=== PATIENT | male | born 1980 | race Caucasian/White ===

== ENCOUNTER 2024-12-04 15:03 | Emergency (ER) | payer OTHER, BC, SELFPAY ==
[2024-12-04 15:13] VITALS: BP 146/79; PULSE 86; RESP 16; TEMP 36.4; O2SAT 96; BMI 38.7
--- NOTE | 2024-12-04 15:37 | ED_ITS ---
HPI - General Adult General Chief complaint: Ear/Nose/Throat Problem Stated complaint: darlene hammer to the nose Time Seen by Provider: 12/04/24 15:37 History of Present Illness HPI narrative: Patient here after the piston inside a darlene hammer hit him in the nose and then flew about 25 feet. This happened around 7:30 am this morning and hasn't stopped oozing. He did see stars but did not lose consciousness. 44-year-old man presenting to the emergency department after the is 10 inside Darlene hammer struck him in the nose. Has continued to ooze blood. There was no loss of consciousness but ?saw stars?. This occurred approximately 8 hours ago in the morning. No neck or back pain. Has had a sensation of something moving at the base of his nose inside and is worried there might be more substantial injury. Apparently consulted with medical provider who noted that since he was able to clench his teeth without more pain was unlikely to be a fracture. Has continued to have some headache. Related Data Home Medications ?Medication ?Instructions ?Recorded ?Confirmed Unobtainable 12/04/24 12/04/24 Allergies Allergy/AdvReac Type Severity Reaction Status Date / Time No Known Drug Allergies Allergy Verified 12/04/24 15:09 Review of Systems Status of ROS: Reports: 6 or more systems reviewed and unremarkable except as noted in History and below Exam Narrative: Exam Narrative: Pleasant. Heavily bearded. In work attire. NAD. Cranial nerves 2-12 intact. Pupils are equal and briskly reactive. 3 mm. Nose appears perhaps slightly swollen. There are 2 darkened lines at the distal nostrils bilaterally and symmetrical consistent in placement with the diameter of the jackhammer piston. Apparently struck him straight in the nose. Dentition intact. No increased pain to palpation over the maxilla. There is a small less than half a cm I think laceration or cut of some sort puncture? just below the left nostril that I think has been leaking blood. Nasal exam does not show septal hematoma or unusual asymmetry. Is breathing easily. No pain to palpation over the maxillary sinuses. There is pain to manipulation of the bridge of the nose though it appears solid. Neck is supple nontender. Const: Vital Signs, click to edit/add: Vital Signs - 24 hr 12/04/24 15:13 Temperature 97.5 F L Pulse Rate [Pulse Oximeter] 86 Respiratory Rate 16 Blood Pressure [Ri ght Upper Arm] 146/79 H Pulse Oximetry 96 Oxygen Delivery Me thod Room Air Documenting provider has reviewed patient's vital signs: yes Course Vital Signs Vital signs: Initial Vital Signs Temperature 97.5 F L 12/04/24 15:13 Temperature Source Temporal Artery Scan 12/04/24 15:13 Pulse Rate 86 12/04/24 15:13 Respiratory Rate 16 12/04/24 15:13 Blood Pressure 146/79 H 12/04/24 15:13 Blood Pressure Mean 101 12/04/24 15:13 Blood Pressure Position Sitting 12/04/24 15:13 Pulse Oximetry 96 12/04/24 15:13 Oxygen Delivery Method Room Air 12/04/24 15:13 Vital Signs Temperature 97.5 F L 12/04/24 15:13 Pulse Rate 86 12/04/24 15:13 Respiratory Rate 16 12/04/24 15:13 Blood Pressure 146/79 H 12/04/24 15:13 Pulse Oximetry 96 12/04/24 15:13 Oxygen Delivery Method Room Air 12/04/24 15:13 Temperature 97.5 F L 12/04/24 15:13 Pulse Rate 86 12/04/24 15:13 Respiratory Rate 16 12/04/24 15:13 Blood Pressure 146/79 H 12/04/24 15:13 Pulse Oximetry 96 12/04/24 15:13 Oxygen Delivery Method Room Air 12/04/24 15:13 Medical Decision Making MDM Narrative Medical decision making narrative: This is a potentially serious mechanism of injury. Physical exam overall was reassuring. I would though CT facial bones to confirm no other injury. Does not appear to have a septal hematoma. CT scan independently reviewed by me does not appear to have any fracture. Wonder if maybe there was some cartilaginous separation not visualized on CT that is contributing to sensation. I did clean the oozing laceration under the right nostril. Does not appear to be in need of repair. There was concern of possible foreign body here. Reviewing again CT images I do not appreciate evidence of metallic foreign body here at least. Nor is that evident on cleaning. Radiology over-read below INDICATION: DARLENE HAMMER TO FACE TECHNIQUE: CT of the face and paranasal sinuses was performed without IV contrast. COMPARISON: None. FINDINGS: Bones: Normal. Orbits: Normal. Paranasal sinuses: Mild mucosal thickening of the left maxillary sinus. Mastoid air cells: Clear. Soft tissues: Normal. Visualized brain: Normal. Additional comments: None. IMPRESSION: No acute displaced facial fractures are seen. Please note that all CT scans at this facility use dose modulation, iterative reconstruction, and/or weight-based dosing when appropriate to reduce radiation dose to as low as reasonably achievable. Dictated by Jos Dyer MD @ 12/04/2024 4:17:23 PM Has not required any interventions in the emergency department. See patient discharge plan for further discussion Clean up as usual. As far as headache goes, hydrate. Can take some ibuprofen or acetaminophen. Return for sudden severe headache, unusual somnolence, discoordination, repeated vomiting. I would ice the sore areas a few times daily over the next few days. Discharge Plan Discharge Clinical Impression: Facial trauma, Laceration Patient Disposition: Home w/ Parent or Adult Condition: Stable Additional Instructions: Clean up as usual. As far as headache goes, hydrate. Can take some ibuprofen or acetaminophen. Return for sudden severe headache, unusual somnolence, discoordination, repeated vomiting. I would ice the sore areas a few times daily over the next few days. Prescriptions: No Action Unobtainable Follow Up/Referrals: Provider,Not a Local [Primary Care Provider, Family Practice] Stand Alone Forms: [employer] Info Instructions
--- NOTE | 2024-12-04 15:46 | CRLHL7_ITS ---
For Patients: As a result of the Century Cures Act, medical imaging exams and procedure reports are released immediately into your electronic medical record. You may view this report before your referring provider. If you have questions, please contact your health care provider. INDICATION: DARLENE MCLEOD TO FACE TECHNIQUE: CT of the face and paranasal sinuses was performed without IV contrast. COMPARISON: None. FINDINGS: Bones: Normal. Orbits: Normal. Paranasal sinuses: Mild mucosal thickening of the left maxillary sinus. Mastoid air cells: Clear. Soft tissues: Normal. Visualized brain: Normal. Additional comments: None. IMPRESSION: No acute displaced facial fractures are seen. Please note that all CT scans at this facility use dose modulation, iterative reconstruction, and/or weight-based dosing when appropriate to reduce radiation dose to as low as reasonably achievable. Dictated by Jos Dyer MD @ 12/04/2024 4:17:23 PM (Electronically Signed)
--- OUTSIDE RECORDS SUMMARY | 2024-12-04 16:16 | XMS_ITS | Clinical Summary ---
Author Organization [facility] er Address [address] [place] [address] Care Team Providers Care Wastewater Project Manager Name Role Phone Bonnie Knight APRN Primary Care Provider Allergies Active Allergy Reactions Criticality Noted Date Comments Lisinopril Medications pravastatin (PRAVACHOL) 80 MG tabletIndications:H yperlipidemia, unspecified hyperlipidemia type Take one a day for cholesterol . On file. 90 tablet 3 4 Active metoprolol succinate XL (TOPROL-XL) 100 MG 24 hr tabletIndications:E ssential hypertension Take ONE and 1/2 tabs (150 mg) daily for blood pressure. Do not crush or chew. On file. 135 tablet 3 4 Active gemfibrozil (LOPID) 600 MG tabletIndications:H yperlipidemia, unspecified hyperlipidemia type Take 1 tablet (600 mg total) by mouth 2 (two) times a day On file. 180 tablet 3 4 Active losartan (COZAAR) 100 MG tabletIndications:E ssential hypertension Take 1 tablet (100 mg total) by mouth daily. 90 tablet 2 5 Active Active Problems Problem Noted Date Diagnosed Date Screening for diabetes mellitus 03/30/2024 Hyperlipidemia 03/30/2024 Assessment & Plan (03/30/2024 11:04 AM SENIOR SVP): Lipid abnormalities are improving with treatment. Nutritional counseling was provided. and Pharmacotherapy as ordered. Lipids will be reassessed in 1 year. Continue Pravastatin 80 mg daily Continue Gemfibrozil 600 mg daily Essential hypertension 03/30/2024 Assessment & Plan (03/30/2024 11:04 AM SENIOR SVP): Hypertension is improving with treatment. Dietary sodium restriction. Weight loss. Regular aerobic exercise. Stop smoking. Continue current medications. Blood pressure will be reassessed at the next regular appointment. Continue Metoprolol 150 mg daily Continue Losartan 100 mg daily Encounter for wellness examination 03/30/2024 Assessment & Plan (03/30/2024 11:02 AM SENIOR SVP): Declines Pneumococcal, Covid and Influenza vaccines today Blood glucose elevated 2023 Assessment & Plan (2023 5:25 PM SENIOR SVP): Elevated glucose levels at last visit Recheck glucose and A1C in 4 weeks Bacterial conjunctivitis of both eyes 2023 Assessment & Plan (2023 5:23 PM SENIOR SVP): Start Ofloxacin 1 drop both eyes 4 x day for 7 days Wash pillow case after sleeping tonight Use a different wash cloth or towel each time you wipe your eyes for the next 24 hours Cigarette nicotine dependence without complicati on 06/15/2020 Assessment & Plan (03/30/2024 11:06 AM SENIOR SVP): Tobacco use is unchanged. Declined smoking cessation Tobacco use will be reassessed at the next regular appointment. 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 Dietary sodium restriction. Weight loss. Regular aerobic exercise. Medication changes per orders. Blood pressure will be reassessed nurse visit in 6 weeks . Continue Metoprolol Succinate XL (Toprol-XL) 150 mg daily Increase Losartan (Cozaar) dose to 100 mg daily Assessment & Plan (2023 5:24 PM SENIOR SVP): Hypertension is unchanged. Dietary sodium restriction. Weight loss. Regular aerobic exercise. Stop smoking. Medication changes per orders. Blood pressure will be reassessed in 4 weeks. Start taking Losartan 50 mg daily instead of 25 mg. Follow up in 1 month Immunizations Immunization Administration Dates Next Due INFLUENZA QUADRIVALENT MDV (IM) 03/18/2019 Influenza 6mo-64yrs Quad Pre servative Free IM 02/13/2022,04/27/2020,03/05/2017,2015 Influenza, Split Virus, Triv alent, Preservative 03/22/2008 Influenza, Unspecified 02/03/2014 Td 09/03/2013 Td, Unspecified 09/03/2013 Tdap 02/13/2022,11/20/2013,07/14/2001 Family History Medical History Relation Comments Cancer Father Bladder Prostate cancer Father No Known Problems Mother Relation Status Comments Daughter Alive Father Alive Mother Alive Sister Alive Social History Tobacco Use Types Packs/Day Years Used Date Smoking Tobacco: Every Day Cigarettes 1.5 20 Passive Smoke Exposure: Current Smokeless Tobacco: Current Snuff Tobacco Cessation:Ready to Q uit: No; Counseling Given: Yes Alcohol Use Standard Drinks/Week Comments Yes 0 (1 standard drink = 0.6 oz pur e alcohol) Rare Humiliation, Afraid, Rape, and Kick questionnair e Answer Date Recorded Within the last year, have y ou been afraid of your partner or ex-partner? No 2023 Within the last year, have y ou been humiliated or emotionally abused in other ways by your partner or ex-partner? No Within the last year, have y ou been kicked, hit, slapped, or otherwise physically hurt by your partner or ex-partner? No 2023 Within the last year, have y ou been raped or forced to have any kind of sexual activity by your partner or ex-partner? No 2023 Social Connection and Isolat ion Panel [NHANES] Answer Date Recorded In a typical week, how many times do you talk on the phone with family, friends, or neighbors? More than three times a week 2023 How often do you get togethe r with friends or relatives? Once a week 2023 How often do you attend [facility] or sikhism services? Patient declined 2023 Do you belong to any clubs o r organizations such as adventist groups, unions, fraternal or athletic groups, or school groups? Yes 2023 How often do you attend meet ings of the clubs or organizations you belong to? Never 2023 Are you , , di vorced, , never , or living with a partner? 2023 AUDIT-C Answer Date Recorded Q1: How often do you have a drink containing alc ohol? Monthly or less 2023 Q2: How many drinks containi ng alcohol do you have on a typical day when you are drinking? 5 or 6 2023 Q3: How often do you have si x or more drinks on one occasion? Less than monthly 2023 Overall Financial Resource Strain (CARDIA) Answe r Date Recorded How hard is it for you to pa y for the very basics like food, housing, medical care, and heating? Not very hard 2023 PHQ-2 Answer Date Recorded PHQ-9 Total Score 3 03/30/2024 [facility] Occup[facility] ional [facility] - Occupational Stress Questionnaire Answer Date Recorded Do you feel stress - tense, restless, nervous, or anxious, or unable to sleep at night because your mind is troubled all the time - these days? Only a little 2023 Exercise Vital Sign Answer Date Recorde d On average, how many days pe r week do you engage in moderate to strenuous exercise (like a brisk walk)? 4 days 2023 On average, how many minutes do you engage in exercise at this level? 60 min 2023 Hunger Vital Sign Answer Date Recorded Within the past 12 months, y ou worried that your food would run out before you got the money to buy more. Never true 07/10/19 24 Within the past 12 months, t he food you bought just didn't last and you didn't have money to get more. Never true 2023 PRAPARE - Transportation Answer Date Re corded In the past 12 months, has l ack of transportation kept you from medical appointments or from getting medications? No 10/2023 In the past 12 months, has l ack of transportation kept you from meetings, work, or from getting things needed for daily living? No 2023 Housing Stability Vital Sign Answer Rm e Recorded In the last 12 months, was t here a time when you were not able to pay the mortgage or rent on time? No 2023 In the last 12 months, how many places have you lived? 1 2023 In the last 12 months, was t here a time when you did not have a steady place to sleep or slept in a chcf (including now)? 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 Not on file Not on file Not on file Last Filed Vital Signs Vital Sign Reading Time Taken Comments Blood Pressure 128/76 03/30/2024 10:30 AM SENIOR SVP Pulse 70 03/30/2024 10:30 AM SENIOR SVP Temperature 36.9 C (98.5 F) 03/30/2024 10:30 AM SENIOR SVP Respiratory Rate 16 03/30/2024 10:30 AM SENIOR SVP Oxygen Saturation 94% 03/30/2024 10:30 AM SENIOR SVP Inhaled Oxygen Concentration - - Weight 126 kg (277 lb 12.8 oz) 03/30/2024 10:30 AM SENIOR SVP Height 183.6 cm (6' 0.28) 03/30/2024 10:[address] Body Mass Index 37.38 03/30/2024 10:30 AM SENIOR SVP Plan of Treatment Health Maintenance Due Date Last Done Comments CT Colonography 1979 Colonoscopy 1979 Colorectal Cancer Screening 1979 FIT-DNA 1979 Sigmoidoscopy 1979 iFOBT 1979 Pneumococcal Vaccine: Pediatrics (0 to 5 Years) and At-Risk Patients (6 to 49 Years) (1 of 2 - PCV) 07/09/1998 COVID-19 Vaccine (1 - season) 2024 Influenza Vaccine (#1) 2025 , 04/27/2020, 03/18/2019, Additional history exists DTaP,Tdap,and Td Vaccines (6 - Td or Tdap) 02/14/2032 02/13/2022, 11/20/2013, 09/03/2013, Additional history exists HPV Vaccines Aged Out No longer eligi ble based on patient's age to complete this topic Insurance [facility] Care Teams Wastewater Project Manager Relationship Specialty Start Date End Date Bonnie Knight APRN [address] [place] [id number] PCP - General 02/21/23
--- OUTSIDE RECORDS SUMMARY | 2024-12-04 16:16 | XMS_ITS | Clinical Summary ---
Author Organization [facility] Address [address] [address] Phone Care Team Providers Care Development Consultant Name Role Phone Unavailable Primary Care Provider Unavailabl e Allergies No known active allergies Medications No known medications Social History Tobacco Use Types Packs/Day Years Used Date Smoking Tobacco: Never Assessed Sex and Gender Information Value Date Recorded Sex Assigned at Not on file Legal Sex Male 5:54 PM CDT Gender Identity Not on file Sexual Orientation Not on file Last Filed Vital Signs Vital Sign Reading Time Taken Comments Blood Pressure 147/107 02/21/2016 8:03 PM CDT Pulse 92 02/21/2016 8:03 PM CDT Temperature 36.7 C (98.1 F) 02/21/2016 8:03 PM CDT Respiratory Rate 18 02/21/2016 8:03 PM CDT Oxygen Saturation 97% 02/21/2016 8:03 PM CDT Inhaled Oxygen Concentration - - Weight 113.4 kg (250 lb) 02/21/2016 6:12 PM CDT Height 185.4 cm (6' 1) 02/21/2016 6:12 PM CDT Body Mass Index 32.98 02/21/2016 6:12 PM CDT Plan of Treatment Not on file Insurance [employer] [place]
--- OUTSIDE RECORDS SUMMARY | 2024-12-04 16:16 | XMS_ITS | Clinical Summary ---
Author Organization [facility] Address [address], [place] [address] Care Team Providers Care Dye Beck Reel Operator Name Role Phone Unavailable Primary Care Provider Unavailabl e Source Comments You are receiving this document as you are listed as the primary care provider,follow-up provider, or the patient has been referred to you for consultation.This is in compliance with the Medicare and[facility] Cent[facility]aid EHR Incentive Program,which states Providers who transition their patient to another setting of careor provider of care or refers their patient to another provider of care shouldprovide summary care record for each transition of care or referral. [place] Allergies Active Allergy Reactions Criticality Noted Date Comments Lisinopril Unknown 09/17/2023 Medications pravastatin (PRAVACHOL) 80 MG tablet Take one a day for cholesterol 3 Active metoprolol succinate (TOPROL XL) 100 MG 24 hour release tablet Take ONE and 1/2 tabs (150 mg) daily for blood pressure. Do not crush or chew. 3 Active losartan (COZAAR) 100 MG tablet Take 1 Tablet (100 mg) by mouth. 4 Active gemfibrozil (LOPID) 600 MG tablet Take 1 Tablet (600 mg) by mouth. 3 Active indomethacin (INDOCIN) 50 MG capsule May take ONE capsule up to three times a day IF needed for gout. Take with food. 4 Active benzonatate (TESSALON) 100 MG capsuleIndicatio ns:Acute upper respiratory infection Take 1 Capsule (100 mg) by mouth three times a day as needed for Cough. 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 Dietary sodium restriction. Weight loss. Regular aerobic exercise. Medication changes per orders. Blood pressure will be reassessed nurse visit in 6 weeks . Continue Metoprolol Succinate XL (Toprol-XL) 150 mg daily Increase Losartan (Cozaar) dose to 100 mg daily Family History Medical History Relation Name Comments Cancer, Bladder Father Hypertension Father Relation Name Status Comments Father Social History Tobacco Use Types Packs/Day Years Used Date Smoking Tobacco: Every Day Cigarettes Smokeless Tobacco: Former Quit: 01/04/2023 Tobacco Cessation:Ready to Q uit: Not Asked; Counseling Given: Not Answered Alcohol Use Standard Drinks/Week Comments Yes 0 (1 standard drink = 0.6 oz pur e alcohol) rare Comments Unknown Sex and Gender Information Value Date Recorded Sex Assigned at Not on file Legal Sex Female 11:34 PM CDT Gender Identity Not on file Sexual Orientation Not on file Last Filed Vital Signs Vital Sign Reading Time Taken Comments Blood Pressure - - Pulse 87 09/17/2023 4:31 PM CDT Temperature 36.7 C (98.1 F) 09/17/2023 4:31 PM CDT Respiratory Rate - - Oxygen Saturation 98% 09/17/2023 4:31 PM CDT Inhaled Oxygen Concentration - - Weight 136.8 kg (301 lb 9.6 oz) 09/17/2023 4:31 PM CDT boots Height - - Body Mass Index - - Plan of Treatment Health Maintenance Due Date Last Done Comments Cervical Cancer Screening Due 1979 Colon Cancer Screening Plan Due 1979 Hep C Screening (Preventive Services) 1979 Mammogram 1979 HIV Screening (Preventive Services) 1995 Adult Preventive Visit 07/09/1997 HepB Vaccine (1) 07/09/1998 Pneumococcal Vaccine (1 of 2 - PCV) 07/09/1998 COVID-19 Vaccine ( - season) 2024 Cholesterol 07/09/2024 Influenza Vaccine (#1) 2025 , 04/27/2020, 03/18/2019, Additional history exists Zoster/Shingles Vaccine (1 of 2) 07/09/2029 DTaP/Tdap/Td Vaccine (5 - Tdap) 02/14/2032 02/13/2022, 11/20/2013, 09/03/2013, Additional history exists HPV Vaccine Aged Out No longer eligi ble based on patient's age to complete this topic HepA Vaccine Aged Out No longer eligi ble based on patient's age to complete this topic Hib Vaccine Aged Out No longer eligi ble based on patient's age to complete this topic IPV (Polio) Vaccine Aged Out No longe r eligible based on patient's age to complete this topic MCV4 Vaccine Aged Out No longer eligi ble based on patient's age to complete this topic Meningococcal B Vaccine Aged Out No l onger eligible based on patient's age to complete this topic Insurance [facility] [place] [id number]
--- OUTSIDE RECORDS SUMMARY | 2024-12-04 16:16 | XMS_ITS | Clinical Summary ---
Author Organization [facility] Address [address] [place] [address] Care Team Providers Care Loan Review Analyst Name Role Phone Corky Zapien MD Primary Care Provider Steph norwood Allergies No known active allergies Medications No known medications Active Problems No known active problems Immunizations Immunization Administration Dates Next Due AMB Influenza, IIV3 (Age >=3 years)([facility]) 03/22/2008 Social History Tobacco Use Types Packs/Day Years Used Date Smoking Tobacco: Every Day Cigarettes Smokeless Tobacco: Current Chew Tobacco Cessation:Ready to Q uit: No; Counseling Given: Yes Comments:chews 1 can per day. Alcohol Use Standard Drinks/Week Comments Not Asked 0 (1 standard drink = 0.6 oz pur e alcohol) Sex and Gender Information Value Date Recorded Sex Assigned at Not on file Legal Sex Male 5:26 AM HIP HOP ARTIST Gender Identity Not on file Sexual Orientation Not on file Obstetrics History Last Filed Vital Signs Vital Sign Reading Time Taken Comments Blood Pressure 130/84 06/13/2015 3:17 PM HIP HOP ARTIST Pulse 80 10/13/2014 4:05 PM CDT Temperature 36.4 C (97.6 F) 10/02/2014 1:12 PM CDT Respiratory Rate 16 07/05/2007 9:26 AM HIP HOP ARTIST Oxygen Saturation 97% 10/29/2012 9:02 AM CDT Inhaled Oxygen Concentration - - Weight 120.2 kg (265 lb) 06/13/2015 3:17 PM HIP HOP ARTIST Height - - Body Mass Index - - Plan of Treatment Health Maintenance Due Date Last Done Comments Tetanus booster 07/09/1990 Depression screening for age 12+ 1991 HIV for age 15-65 07/09/1994 BMI (ht and wt on same day) for age 18+ 07/09/1997 Hepatitis C screening for ag e 18-79 07/09/1997 Hepatitis B series for 19+ ( 1 of 3 - 19+ 3-dose series) 07/09/1998 COVID-19 vaccine series ( - 2023- season) 2024 Colonoscopy through age 75 07/09/2024 Lipids for age 45-75 07/09/2024 Influenza Vaccine (#1) 2025 03/22/2008 Pneumococcal series for age 6-49 Aged Out No longer eligible based on patient's age to complete this topic Insurance [facility] * Guarantor: JOSÉ ALVAREZ Account Type Relation to Patient Date of Phone Billing Address [facility] [employer] ATTN: [employer] [address] [place] [address] Care Teams Loan Review Analyst Relationship Specialty Start Date End Date Corky Zapien MD [address] [place] [address] PCP - General 12/24/05
--- OUTSIDE RECORDS SUMMARY | 2024-12-04 16:16 | XMS_ITS | Encounter Summary ---
Author Organization [facility] Address [address] [place] [address] Care Team Providers Care Hiv Prevention Specialist Name Role Phone Bonnie Knight APRN Primary Care Provider Reason for Visit * Reason Comments Med Refill Encounter Details Date Type Department Care Team (Late st Contact Info) Description 05/05/2024 Refill [place] [address] [place] [address] Royer Putnam MD Hyperlipidemia, unspecified hyperlipidemia type Social History Tobacco Use Types Packs/Day Years Used Date Smoking Tobacco: Every Day Cigarettes 1.5 20 Passive Smoke Exposure: Current Smokeless Tobacco: Current Snuff Alcohol Use Standard Drinks/Week Comments Yes 0 [...] week 2023 How often do you attend chur or yarsanism services? Patient declined 2023 Do you belong to any clubs o r organizations such as judaism groups, unions, fraternal or athletic groups, or [...] Date Recorded PHQ-9 Total Score 3 03/30/2024 [facility] - Occupational Stress Questionnaire Answer Date Recorded [...] place to sleep or slept in a snf (including now)? 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 Not on file Not on file Not on file documented as of this encounter Miscellaneous Notes * Telephone Encounter - Catalina Flores LPN - 05/11/2024 9:42 AM ENERGY AUDIT ADVISOR Duplicate request pharmacy was notified and they have on file Last filled on 03/30/24 #90 3 refills GY AUDIT ADVISOR documented in this encounter Plan of Treatment Not on file documented as of this encounter Visit Diagnoses Diagnosis Hyperlipidemia, unspecified hyperlipidemia type documented in this encounter Care Teams Hiv Prevention Specialist Relationship Specialty Start Date End Date Bonnie Knight, MECHANICAL INSPECTOR [address] [place] [id number] PCP - General 02/21/23 documented as of this encounter
== END 2024-12-04 17:18 | disposition home or self-care (01) ==
PROVIDERS: Emergency Provider Family Medicine
DX: S01.21XA Laceration without foreign body of nose, initial encounter (principal); W29.8XXA Contact with other powered hand tools and household machinery, initial encounter
CPT/HCPCS: 70486; 99283; 99284